=== PATIENT | female | born 1950 | race Two or more races ===

== ENCOUNTER 2025-05-01 06:21 | Day surgery (SDC) | payer OTHER, SELFPAY | END 2025-05-01 14:11 | disposition home or self-care (01) | LOC: GI 06:21 | PROVIDERS: ATTENDING PHYSICIAN Internal Medicine Gastroenterology | DX: R12 Heartburn (principal); R63.4 Abnormal weight loss; R19.4 Change in bowel habit; K31.89 Other diseases of stomach and duodenum; K57.30 Diverticulosis of large intestine without perforation or abscess without bleeding; K29.50 Unspecified chronic gastritis without bleeding | CPT/HCPCS: 45380; 43239; 88305; 88342 ==